=== PATIENT | female | born 1960 | race African-American/Black ===

== ENCOUNTER 2019-03-26 10:20 | Inpatient (IN) | payer OTHER ==
[2019-03-26 11:35] VITALS: BMI 25.7
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
[2019-03-26] MEDS ORDERED: BISMUTH SUBSALICYLATE 262 MG/15 ML BTL PO PRN (13:28)
[2019-03-26] MEDS ORDERED: MENTHOL/PHENOL 1 EACH UD MM PRN (13:28)
[2019-03-26] MEDS ORDERED: MAGNESIUM CITRATE 300 ML BOTTLE PO PRN (13:28)
[2019-03-26] MEDS ORDERED: ACETAMINOPHEN 325 MG TABLET (FP) PO PRN (13:28)
[2019-03-26] MEDS ORDERED: MAG HYDROX/AL HYDROX/SIMETH 30 ML UNIT-DOSE CUP PO PRN (13:28)
[2019-03-26] MEDS ORDERED: chlordiazePOXIDE HCL 25 MG CAPSULE PO PRN (13:36)
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
[2019-03-26] MEDS ORDERED: METHADONE HCL 10 MG TABLET (FOR DETOX USE ONLY) PO ONE ×2 (15:10→23:00)
[2019-03-26 16:47] LABS: HEMATOCRIT 38.4 % (32.4-45.2); HEMOGLOBIN 12.7 GM/dL (10.7-15.3); MCH 30.5 pg (25.7-33.7); MCHC 33.2 g/dl (32.0-36.0); MEAN CELL VOLUME 91.8 fl (80-96); MEAN PLT VOLUME 8.9 fl (7.5-11.1); PLATELET COUNT 226 K/MM3 (134-434); RBC 4.18 M/mm3 (3.60-5.2); RDW 14.6 % (11.6-15.6); WHITE BLOOD COUNT 5.2 K/mm3 (4.0-10.0)
[2019-03-26 16:55] LABS: ALBUMIN 4.1 g/dl (3.4-5.0); ALK PHOS 111 U/L (45-117); ANION GAP 9 MMOL/L (8-16); BILIRUBIN,TOTAL 0.4 mg/dL (0.2-1); BLOOD UREA NITROGEN 7 mg/dL (7-18); CHLORIDE 104 mmol/L (98-107); CO2 27 mmol/L (21-32); CREATININE 0.6 mg/dL (0.55-1.3); GLUCOSE,RANDOM 88 mg/dL (74-106); SGOT/AST 51 U/L (15-37); SGPT/ALT 32 U/L (13-61); SODIUM 141 mmol/L (136-145); TOT PROT 7.6 g/dl (6.4-8.2)
[2019-03-26] MEDS: chlordiazePOXIDE HCL 25 MG CAPSULE PO SCH ×2 (17:34→22:10)
[2019-03-26] MEDS: ALBUTEROL SO4 8 GM HFA INHALER IH PRN (17:34)
[2019-03-26 17:37] LABS: SICKLE CELL SCREEN NEGATIVE (NEGATIVE)
[2019-03-26] MEDS: THIAMINE HCL 100 MG TABLET (FP) PO SCH (22:10)
[2019-03-26] MEDS: MELATONIN 5 MG TABLETS PO PRN (22:11)
[2019-03-26] MEDS: IBUPROFEN 400 MG TABLET (FP) PO PRN (22:31)
[2019-03-27] MEDS: chlordiazePOXIDE HCL 25 MG CAPSULE PO SCH ×4 (06:11→22:23)
[2019-03-27] MEDS: ACETAMINOPHEN 325 MG TABLET (FP) PO PRN ×2 (06:17→20:44)
[2019-03-27] MEDS ORDERED: METHADONE HCL 5 MG TABLET (FOR DETOX USE ONLY) PO ONE (10:00)
[2019-03-27] MEDS: PRENATAL VITAMINS W/ FOLIC ACID TABLET (FP) PO SCH (10:01)
[2019-03-27] MEDS: cloNIDine HCL 0.1 MG TABLET PO PRN (13:27)
[2019-03-27] MEDS: METHOCARBAMOL 500 MG TABLET PO PRN (13:27)
[2019-03-27] MEDS: hydrOXYzine PAMOATE 25 MG CAPSULE (FP) PO PRN (13:27)
[2019-03-27] MEDS ORDERED: ONDANSETRON *ODT* 4 MG TABLET SL PRN (13:42)
--- NOTE | 2019-03-27 13:42 | PN ---
S CIWA - CIWA Score Nausea/Vomitin-Mild Nausea/No Vomiting Muscle Tremors: 4-Moderate,w/Arms Extend Anxiety: 4-Mod. Anxious/Guarded Agitation: 4-Moderately Restless Paroxysmal Sweats: 3 Orientation: 0-Oriented Tacttile Disturbances: 0-None Auditory Disturbances: 0-None Visual Disturbances: 0-None Headache: 0-None Present CIWA-Ar Total Score: 16 [facility] COWS - Scale Resting Pulse: 0= [place] 80 or Below Sweatin=Flushed/Facial Moisture Restless Observation: 1= Difficult to Sit Still Pupil Size: 0= Normal to Room Light Bone or Joint Aches: 2= Severe Diffuse Aches Runny Nose/ Eye Tearin= Nasal Congestion GI Upset > 30mins: 2= Nausea/Diarrhea Tremor Observation of Outstretched Hands: 2= Slight Tremor Visible Yawning Observation: 2= >3x During Session Anxiety or Irritability: 2=Irritable/Anxious Goose Flesh Skin: 0=Smooth Skin COWS Score: 14 S Progress Note (SOAP) Subjective: nausea sweats chills agitation body aches interrupted sleep Objective: 03/27/19 13:41 Vital Signs Temperature 99.1 F 03/27/19 09:54 Pulse Rate 69 03/27/19 09:54 Respiratory Rate 16 03/27/19 09:54 Blood Pressure 151/88 03/27/19 09:54 O2 Sat by Pulse Oximetry (%) Laboratory Tests 03/26/19 03/26/19 03/26/19 13:25 13:25 13:25 WBC 5.2 RBC 4.18 Hgb 12.7 Hct 38.4 MCV 91.8 MCH 30.5 MCHC 33.2 RDW 14.6 Plt Count 226 MPV 8.9 Sickle Cell Screen Negative Sodium 141 Potassium 4.0 Chloride 104 Carbon Dioxide 27 Anion Gap 9 BUN 7 Creatinine 0.6 Creat Clearance w eGFR 103.41 Random Glucose 88 Calcium 9.0 Total Bilirubin 0.4 AST 51 H ALT 32 Alkaline Phosphatase 111 Total Protein 7.6 Albumin 4.1 RPR Titer Nonreactive labs noted aaox3 ambulating no acute distress Assessment: 03/27/19 13:41 withdrawal sx Plan: continue detox increase fluids zofran prn
--- NOTE | 2019-03-27 15:21 | EKG ---
Test Reason : Blood Pressure : / mmHG Vent. Rate : 061 BPM Atrial Rate : 061 BPM P-R Int : 152 ms QRS Dur : 092 ms QT Int : 456 ms P-R-T Axes : 034 -51 022 degrees QTc Int : 459 ms SINUS RHYTHM WITH PREMATURE ATRIAL COMPLEXES LEFT ANTERIOR FASCICULAR BLOCK ABNORMAL ECG NO PREVIOUS ECGS AVAILABLE Confirmed by ARTURO ARIAS MD ([id number]) on 03/27/2019 3:20:45 PM Referred By: Confirmed By:ARTURO ARIAS MD
[2019-03-27] MEDS: IBUPROFEN 400 MG TABLET (FP) PO PRN (15:34)
[2019-03-27] MEDS: ALBUTEROL SO4 8 GM HFA INHALER IH PRN (20:50)
[2019-03-27] MEDS: MELATONIN 5 MG TABLETS PO PRN (22:23)
[2019-03-27] MEDS: THIAMINE HCL 100 MG TABLET (FP) PO SCH (22:23)
[2019-03-28] MEDS: ACETAMINOPHEN 325 MG TABLET (FP) PO PRN ×2 (05:11→11:11)
[2019-03-28] MEDS: chlordiazePOXIDE HCL 25 MG CAPSULE PO SCH ×2 (05:11→11:10)
[2019-03-28] MEDS ORDERED: METHADONE HCL 10 MG TABLET (FOR DETOX USE ONLY) PO ONE (10:00)
[2019-03-28] MEDS ORDERED: CITALOPRAM HYDROBROMIDE 20 MG TABLET (FP) PO SCH (10:00)
[2019-03-28] MEDS: PRENATAL VITAMINS W/ FOLIC ACID TABLET (FP) PO SCH (11:10)
--- NOTE | 2019-03-28 13:38 | PN ---
S CIWA - CIWA Score Nausea/Vomitin-No Nausea/No Vomiting Muscle Tremors: 1-None Visible, but Union Anxiety: 2 Agitation: 1-Slight > Activity Paroxysmal Sweats: 2 Orientation: 0-Oriented Tacttile Disturbances: 0-None Auditory Disturbances: 0-None Visual Disturbances: 0-None Headache: 2-Mild CIWA-Ar Total Score: 8 BHS COWS - Scale Resting Pulse: 0= [place] 80 or Below Sweatin= Chills/Flushing Restless Observation: 0= Sits Still Pupil Size: 0= Normal to Room Light Bone or Joint Aches: 1= Mild Discomfort Runny Nose/ Eye Tearin= Nasal Congestion GI Upset > 30mins: 0= None Tremor Observation of Outstretched Hands: 1= Tremor Union, Not Seen Yawning Observation: 1= 1-2x During Session Anxiety or Irritability: 1=Feels Anxious/Irritable Goose Flesh Skin: 0=Smooth Skin COWS Score: 6 S Progress Note (SOAP) Subjective: patient c/o chills, shakes, interrupted sleep and anxiety Objective: 03/28/19 13:36 Laboratory Tests 03/26/19 03/26/19 03/26/19 13:25 13:25 13:25 WBC 5.2 RBC 4.18 Hgb 12.7 Hct 38.4 MCV 91.8 MCH 30.5 MCHC 33.2 RDW 14.6 Plt Count 226 MPV 8.9 Sickle Cell Screen Negative Sodium 141 Potassium 4.0 Chloride 104 Carbon Dioxide 27 Anion Gap 9 BUN 7 Creatinine 0.6 Creat Clearance w eGFR 103.41 Random Glucose 88 Calcium 9.0 Total Bilirubin 0.4 AST 51 H ALT 32 Alkaline Phosphatase 111 Total Protein 7.6 Albumin 4.1 RPR Titer Nonreactive Vital Signs Temperature 97.0 F L 03/28/19 09:42 Pulse Rate 65 03/28/19 09:42 Respiratory Rate 16 03/28/19 09:42 Blood Pressure 139/88 03/28/19 09:42 O2 Sat by Pulse Oximetry (%) pe: alert and oriented x 3 skin warm, mild moisture to forehead ext mild tremors felt anxious Assessment: 03/28/19 13:37 withdrawal sx Plan: continue detox encourage fluids monitor clinically
[2019-03-28] MEDS: ALBUTEROL SO4 8 GM HFA INHALER IH PRN (13:52)
[2019-03-28] MEDS: IBUPROFEN 400 MG TABLET (FP) PO PRN ×2 (14:44→23:50)
[2019-03-28] MEDS: cloNIDine HCL 0.1 MG TABLET PO PRN (14:44)
[2019-03-28] MEDS ORDERED: chlordiazePOXIDE HCL 10 MG CAPSULE PO PRN (17:00)
[2019-03-28] MEDS: chlordiazePOXIDE HCL 10 MG CAPSULE PO SCH ×2 (17:44→22:04)
[2019-03-28] MEDS: METHOCARBAMOL 500 MG TABLET PO PRN (19:29)
[2019-03-28] MEDS: THIAMINE HCL 100 MG TABLET (FP) PO SCH (22:03)
[2019-03-28] MEDS: MELATONIN 5 MG TABLETS PO PRN (22:04)
[2019-03-29] MEDS: chlordiazePOXIDE HCL 10 MG CAPSULE PO SCH ×3 (05:48→18:26)
[2019-03-29] MEDS ORDERED: METHADONE HCL 5 MG TABLET (FOR DETOX USE ONLY) PO ONE (06:00)
[2019-03-29] MEDS ORDERED: IBUPROFEN 400 MG TABLET (FP) PO PRN (08:15)
[2019-03-29] MEDS: SUMAtriptan SUCCINATE 50 MG TABLET PO SCH (09:05)
[2019-03-29] MEDS: MAGNESIUM HYDROX 2400MG/30ML ORAL SUSPENSION 30 ML CUP PO PRN (09:05)
--- NOTE | 2019-03-29 10:16 | PN ---
[facility] CIWA - CIWA Score Nausea/Vomitin-No Nausea/No Vomiting Muscle Tremors: 1-None Visible, but Michael Anxiety: 2 Agitation: 2 Paroxysmal Sweats: No Perspiration Orientation: 0-Oriented Tacttile Disturbances: 0-None Auditory Disturbances: 0-None Visual Disturbances: 0-None Headache: 3-Moderate CIWA-Ar Total Score: 8 [facility] COWS - Scale Resting Pulse: 0= [place] 80 or Below Sweatin= Chills/Flushing Restless Observation: 0= Sits Still Pupil Size: 0= Normal to Room Light Bone or Joint Aches: 0= None Runny Nose/ Eye Tearin= Runny Nose/Eyes GI Upset > 30mins: 0= None Tremor Observation of Outstretched Hands: 2= Slight Tremor Visible Yawning Observation: 0= None Anxiety or Irritability: 2=Irritable/Anxious Goose Flesh Skin: 0=Smooth Skin COWS Score: 7 [facility] Progress Note (SOAP) Subjective: chest congestions nasal congestions sweats headache Objective: 03/29/19 10:54 Vital Signs Temperature 98.9 F 03/29/19 09:19 Pulse Rate 71 03/29/19 09:19 Respiratory Rate 18 03/29/19 09:19 Blood Pressure 141/78 03/29/19 09:19 O2 Sat by Pulse Oximetry (%) aaox3 ambulating no acute distress Assessment: 03/29/19 10:55 withdrawal sx Plan: continue detox imitrex 50mg x one ordered increase fluids ocean spray ordered motrin 800mg prn
[2019-03-29] MEDS ORDERED: SODIUM CHLORIDE NASAL SPRAY 44 ML BOTTLE NS PRN (10:19)
[2019-03-29] MEDS: guaiFENesin 600 MG TABLET.ER (FP) PO SCH ×2 (10:46→22:03)
[2019-03-29] MEDS: PRENATAL VITAMINS W/ FOLIC ACID TABLET (FP) PO SCH (10:46)
[2019-03-29] MEDS: ACETAMINOPHEN 325 MG TABLET (FP) PO PRN (16:40)
--- NOTE | 2019-03-29 17:04 | PN ---
[facility] Progress Note Note: Psychiatry Attending's note (follow-up) note : Approached by patient. Ms Smyth requested a meeting to discuss citalopram. Medication was discontinued in view of abnormal EKG. Alternate SSRI drugs are reviewed/discussed with patient. Patient reports that she has " not touched " one tablet of celexa. Prescribed by her primary care physician. Expressed preference for " counseling ". Ms Smyth informs his radio script writer of her discharge scheduled for 03/30 19 (tomorrow) . Will be transitioning to rehabilitative care at another facility. Stable mental status. Relapse prevention (MAT) re-discussed with the patient. To be addressed in rehabilitation. Baseline.
[2019-03-29] MEDS: MELATONIN 5 MG TABLETS PO PRN (22:04)
[2019-03-29] MEDS: THIAMINE HCL 100 MG TABLET (FP) PO SCH (22:04)
[2019-03-29] MEDS: hydrOXYzine PAMOATE 25 MG CAPSULE (FP) PO PRN (23:49)
[2019-03-30] MEDS: chlordiazePOXIDE HCL 10 MG CAPSULE PO SCH (05:23)
[2019-03-30] MEDS: SUMAtriptan SUCCINATE 50 MG TABLET PO SCH (07:40)
[2019-03-30] MEDS: guaiFENesin 600 MG TABLET.ER (FP) PO SCH (09:45)
[2019-03-30] MEDS: PRENATAL VITAMINS W/ FOLIC ACID TABLET (FP) PO SCH (09:45)
--- NOTE | 2019-03-30 09:58 | DS ---
[facility] Detox Discharge Summary Admission Date: 03/26/19 Discharge Date: 03/30/19 - History Present History: Alcohol Dependence, Cannabis Dependence, Opioid Dependence - Physical Exam Results Vital Signs: Vital Signs Temperature 95.9 F L 03/30/19 06:00 Pulse Rate 69 03/30/19 06:00 Respiratory Rate 16 03/30/19 06:00 Blood Pressure 139/79 03/30/19 06:00 O2 Sat by Pulse Oximetry (%) - Treatment Hospital Course: Detox Protocol Followed, Detoxed Safely, Responded well, Discharged Condition Good, Rehab Referral Accepted - Medication Discharge Medications: Ambulatory Orders Albuterol Sulfate Inhaler - [Ventolin HFA Inhaler -] 2 inhaler PO QID PRN - Diagnosis (1) Alcohol dependence with uncomplicated withdrawal Current Visit: Yes Status: Chronic (2) Dehydration Current Visit: Yes Status: Acute (3) History of splenectomy Current Visit: Yes Status: Acute (4) Insomnia secondary to depression with anxiety Current Visit: Yes Status: Acute (5) Low back pain Current Visit: Yes Status: Chronic Qualifiers: Chronicity: chronic Back pain laterality: unspecified (6) Lumbar herniated disc Current Visit: Yes Status: Acute (7) Opioid dependence with withdrawal Current Visit: Yes Status: Chronic (8) Syncope Current Visit: Yes Status: Acute (9) Weight loss Current Visit: Yes Status: Acute (10) Cannabis dependence Current Visit: Yes Status: Chronic (11) Depressive disorder Current Visit: Yes Status: Chronic (12) Insomnia Current Visit: Yes Status: Chronic (13) Nicotine dependence Current Visit: Yes Status: Chronic Qualifiers: Nicotine product type: cigarettes Substance use status: uncomplicated Qualified Code(s): F17.210 - Nicotine dependence, cigarettes, uncomplicated (14) Non-compliance Current Visit: Yes Status: Chronic (15) Substance induced mood disorder Current Visit: Yes Status: Chronic - AMA Did Patient Leave Against Medical Advice: No ([facility]
[2019-03-30] MEDS: MAGNESIUM HYDROX 2400MG/30ML ORAL SUSPENSION 30 ML CUP PO PRN (10:15)
[2019-03-30 10:30] VITALS: BP 140/83; PULSE 73; TEMP 97.2
== END 2019-03-30 11:35 | disposition home or self-care (01) | DRG 897 ==
LOC: YASAS 10:20 → Y6N 13:32
PROVIDERS: ADMIT Surgery; ATTEND Surgery
PROC: HZ2ZZZZ Detoxification Services for Substance Abuse Treatment (ICD-10-PCS; principal; 2019-03-26)
DX: F11.23 Opioid dependence with withdrawal (principal); F10.230 Alcohol dependence with withdrawal, uncomplicated; F12.20 Cannabis dependence, uncomplicated; F17.210 Nicotine dependence, cigarettes, uncomplicated; F19.24 Other psychoactive substance dependence with psychoactive substance-induced mood disorder; F51.05 Insomnia due to other mental disorder; F32.9 Major depressive disorder, single episode, unspecified; G47.00 Insomnia, unspecified; E86.0 Dehydration; R55 Syncope and collapse; M51.26 Other intervertebral disc displacement, lumbar region; M54.5 Low back pain; G89.29 Other chronic pain; R63.4 Abnormal weight loss; Z68.25 Body mass index [BMI] 25.0-25.9, adult; Z91.19 Patient's noncompliance with other medical treatment and regimen
CPT/HCPCS: 36415; 80053; 85027; 85660; 86593; 93005; 93010; J0735; Q0162